=== PATIENT | female | born 1955 | race Two or more races ===

== ENCOUNTER → 2022-07-18 15:42 | Outpatient (REF) | payer OTHER, SELFPAY | LOC: HO.SL 15:42 | PROVIDERS: Visit Provider Psychiatry & Neurology Neurology | DX: G47.33 Obstructive sleep apnea (adult) (pediatric) (principal) | CPT/HCPCS: 95806; 95811 ==

== ENCOUNTER → 2022-09-12 09:59 | Outpatient (BNVA) | payer OTHER, SELFPAY | PROVIDERS: PCP Internal Medicine; Visit Provider Psychiatry & Neurology Neurology | DX: G47.33 Obstructive sleep apnea (adult) (pediatric) (principal); G47.52 REM sleep behavior disorder; G25.81 Restless legs syndrome; G20 Parkinson's disease ==

== ENCOUNTER → 2022-10-09 21:34 | Outpatient (REF) | payer OTHER, SELFPAY | LOC: HO.SL 21:34 | PROVIDERS: PCP Internal Medicine; Visit Provider Nurse Practitioner Family | DX: G47.33 Obstructive sleep apnea (adult) (pediatric) (principal) | CPT/HCPCS: 95811 ==

== ENCOUNTER → 2022-12-11 07:30 | Outpatient (BNVA) | payer OTHER, SELFPAY | PROVIDERS: PCP Internal Medicine; Visit Provider Psychiatry & Neurology Neurology | DX: G47.33 Obstructive sleep apnea (adult) (pediatric) (principal); G47.52 REM sleep behavior disorder; G25.81 Restless legs syndrome; G20 Parkinson's disease ==

== ENCOUNTER → 2023-02-18 09:20 | Outpatient (BNVA) | payer OTHER, SELFPAY | PROVIDERS: PCP Internal Medicine; Visit Provider Psychiatry & Neurology Neurology | DX: G47.33 Obstructive sleep apnea (adult) (pediatric) (principal); G47.52 REM sleep behavior disorder; G25.81 Restless legs syndrome; G20 Parkinson's disease ==

== ENCOUNTER 2023-05-27 07:35 | Outpatient (AMB) | payer MEDICARE, SELFPAY ==
--- NOTE | 2023-05-27 07:33 | MHC.OFFVIS ---
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 she is using her CPAP more consistently CPAP compliance- 80% Usage hrs 4hrs median pressure 11 AHI 3 she denies any abnormal REM behavior . she has gained weight since last Parkinsons is stable- tremors have mildly worsened, gait is worse.No falls. \No hallucinations she uses a stool softener . Mood is stable.Denies anxiety Her ankle is better ( left ankle surgery 2 yrs ago) she also has back pain. [facility] Medical History Leg cramps, sleep related Arthritis Hyperlipidemia Restless legs syndrome (RLS) Complex sleep apnea syndrome Surgical History History of ankle surgery Family History Father Lung cancer Emphysema of lung Mother Stroke Social History Household Members: Spouse and Children Alcohol intake: current Alcohol intake frequency: holidays/special occasions only Alcohol type: wine Patient Tobacco Use Status: Former Tobacco user Physical Exam Vital Signs: Last Vital Signs Pulse 85 05/27/23 07:37 BP 122/80 05/27/23 07:37 Pulse Ox 96 05/27/23 07:37 Oxygen Delivery Method Room Air 05/27/23 07:37 Const General: cooperative, comfortable and no acute distress Nutritional Appearance: obese Orientation/consciousness: patient oriented x3 Limitations: physical limitations HEENT Head: Yes normal to inspection Neuro Other: very mild decreased facial expression and blink Speech normal No rest tremors Mild postural tremors ivette Mild bradykinesia UE L>R Moderate bradykinesia L>R in LE Gait- mild slowing decreased arm swing left no cog wheel rigidity General: patient oriented x3 Assessment & Plan Assessment & Plan (1) Parkinson's disease: Code(s): G20 - Parkinson's disease (2) Obstructive sleep apnea: Comment: Severe degree of sleep apnea. The total AHI was 37/hr and oxygen meliza was 81 % Code(s): G47.33 - Obstructive sleep apnea (adult) (pediatric) (3) REM behavioral disorder: Code(s): G47.52 - REM sleep behavior disorder Plan Melatonin 3-5mg qhs pramipexole 1mg tid ( c/o excessive sleepiness) Continue CPAP 5-14 Will consider INSPIRE due to poor cpap tolerance Info on INSPIRE given Refer to PT for back pain Orders: Orders PT Evaluation and Treatment Today M54.50 - Low back pain, unspecified Coding Level of Care Code Est Pt Level 4 (87186) Diagnoses Parkinson's disease G20 Obstructive sleep apnea G47.33 REM behavioral disorder G47.52
[2023-05-27 07:37] VITALS: BP 122/80; PULSE 85; O2SAT 96
== END 2023-05-27 08:07 | disposition home or self-care (01) ==
PROVIDERS: PCP Internal Medicine; Visit Provider Psychiatry & Neurology Neurology
DX: G20 Parkinson's disease (principal); G47.33 Obstructive sleep apnea (adult) (pediatric); G47.52 REM sleep behavior disorder
CPT/HCPCS: 99214

== ENCOUNTER → 2023-05-27 07:35 | Outpatient (BNVA) | payer MEDICARE, SELFPAY | PROVIDERS: PCP Internal Medicine; Visit Provider Psychiatry & Neurology Neurology | DX: G20 Parkinson's disease (principal); G47.33 Obstructive sleep apnea (adult) (pediatric); G47.52 REM sleep behavior disorder | CPT/HCPCS: 99212 ==

== ENCOUNTER 2023-09-10 09:56 | Outpatient (AMB) | payer MEDICARE, SELFPAY ==
--- NOTE | 2023-09-10 10:02 | A.OFFVIS_ITS ---
Intake Vital Signs 09/10/23 10:03 Height 5 ft 4 in Weight 194 lb 4 oz BMI 33.3 BP 140/70 H Blood Pressure Location Lt brachial Position Sitting Pulse 85 Pulse Source Pulse Oximeter Pulse Oximetry (%) 95 Oxygen Delivery Method Room Air Intake Visit Reasons: f/u per MD for problems with CPAP-LVM Allergies No Known Allergies Allergy (Verified 09/10/23 10:06) HPI HPI Comments History of Present Illness Details 67 y/o female comes for follow up of Par kinsons disease, restless legs syndrome, MIRANDA on CPAP. Pt reports Parkinsons' symptoms are stable- tremors mild and no falls reported. She uses a stool softener . Mood is stable. Denies anxiety. Denies REM behavior. Restless legs manages well with pramipexole 1 mg TID. She had refittied mask and it feels a little better. However, she wakes up without CPAP sometimes. Also she had cold and sinus problem in July, could not use CPAP regularly. The CPAP compliance and therapy response (06/12/23-09/09/23) reviewed. She is on APAP [id number]. The usage days 43 % and the average usage hours 3 hrs 20 min. The max pressure was 13 and the AHI was 3/hr. [facility] Medical History (Updated 09/12/23 @ 15:58 by Jeimy Butler CNP) Leg cramps, sleep related Arthritis Hyperlipidemia Restless legs syndrome (RLS) Complex sleep apnea syndrome Surgical History History of ankle surgery Family History Father Lung cancer Emphysema of lung Mother Stroke Social History Household Members: Spouse and Children Alcohol intake: current Alcohol intake frequency: holidays/special occasions only Alcohol type: wine Patient Tobacco Use Status: Former Tobacco user Review of Systems Const All systems reviewed & are unremarkable except as noted in HPI and below Physical Exam Vital Signs: Last Vital Signs Pulse 85 09/10/23 10:03 BP 140/70 H 09/10/23 10:03 Pulse Ox 95 09/10/23 10:03 Oxygen Delivery Method Room Air 09/10/23 10:03 BMI result Body Mass Index 33.3 Const General: cooperative, comfortable and no acute distress Nutritional Appearance: obese Orientation/consciousness: patient oriented x3 Limitations: physical limitations HEENT Head: Yes normal to inspection Neuro Other: very mild decreased facial expression and blink Speech normal No rest tremors Mild postural tremors ivette Mild bradykinesia UE L>R Moderate bradykinesia L>R in LE Gait- mild slowing decreased arm swing left no cog wheel rigidity General: patient oriented x3 Assessment & Plan Assessment & Plan (1) Parkinson's disease: Code(s): G20 - Parkinson's disease (2) Obstructive sleep apnea: Comment: Severe degree of sleep apnea. The total AHI was 37/hr and oxygen meliza was 81 % Code(s): G47.33 - Obstructive sleep apnea (adult) (pediatric) (3) REM behavioral disorder: Code(s): G47.52 - REM sleep behavior disorder (4) Restless legs syndrome (RLS): Code(s): G25.81 - Restless legs syndrome Plan Melatonin 3-5mg qhs. pramipexole 1mg tid ( c/o excessive sleepiness). Continue CPAP 5-14 cmH2O. Will consider INSPIRE due to poor cpap tolerance. Pt is not interested in INSPIRE at this time. Coding Level of Care Code Est Pt Level 4 (88481) Diagnoses Parkinson's disease G20 Obstructive sleep apnea G47.33 REM behavioral disorder G47.52 Restless legs syndrome (RLS) G25.81
[2023-09-10 10:03] VITALS: BP 140/70; PULSE 85; O2SAT 95; BMI 33.3
== END 2023-09-10 10:27 | disposition home or self-care (01) ==
LOC: HO.HSMC 09:56
PROVIDERS: PCP Internal Medicine; Visit Provider Nurse Practitioner Family
DX: G20.B1 Parkinson's disease with dyskinesia, without mention of fluctuations (principal); G47.33 Obstructive sleep apnea (adult) (pediatric); G47.52 REM sleep behavior disorder; G25.81 Restless legs syndrome
CPT/HCPCS: 99214

== ENCOUNTER → 2023-09-10 09:56 | Outpatient (BNVA) | payer MEDICARE, SELFPAY | PROVIDERS: PCP Internal Medicine; Visit Provider Nurse Practitioner Family | DX: G20.A1 Parkinson's disease without dyskinesia, without mention of fluctuations (principal); G47.33 Obstructive sleep apnea (adult) (pediatric); G47.52 REM sleep behavior disorder; G25.81 Restless legs syndrome | CPT/HCPCS: 99212 ==

== ENCOUNTER → 2023-11-26 10:29 | Outpatient (BNVA) | payer MEDICARE, SELFPAY | PROVIDERS: PCP Internal Medicine; Visit Provider Psychiatry & Neurology Neurology | DX: G20.A1 Parkinson's disease without dyskinesia, without mention of fluctuations (principal); G47.33 Obstructive sleep apnea (adult) (pediatric); G47.52 REM sleep behavior disorder; G25.81 Restless legs syndrome | CPT/HCPCS: 99212 ==

== ENCOUNTER 2023-11-26 10:39 | Outpatient (AMB) | payer MEDICARE, SELFPAY ==
--- NOTE | 2023-11-26 10:31 | A.OFFVIS_ITS ---
Intake Vital Signs 11/26/23 10:32 Height 5 ft 4 in Weight 194 lb BMI 33.3 BP 120/76 Blood Pressure Location Rt brachial Position Sitting Respiration 16 Pulse 91 Pulse Source Pulse Oximeter Pulse Oximetry (%) 96 Oxygen Delivery Method Room Air Intake Visit Reasons: 6m f/u-Unable to lvm Intake Note: Pt presents for 2 month follow up for Parkinson's and RLS. 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 Pt reports Parkinsons' symptoms are stable- tremors mild and no falls reported. She uses a stool softener . Mood is stable. Denies anxiety. Denies REM behavior. she had a mask fitting session and has been doing well since then. The CPAP compliance and therapy response (06/12/23-09/09/23) reviewed. She is on APAP [id number]. The usage days 43 % and the average usage hours 3 hrs 20 min. The max pressure was 13 and the AHI was 3/hr. [facility] Medical History (Updated 11/26/23 @ 10:52 by Criselda Foy MD) Parkinson's disease without dyskinesia, without mention of fluctuations Leg cramps, sleep related Arthritis Hyperlipidemia Restless legs syndrome (RLS) Complex sleep apnea syndrome Surgical History History of ankle surgery Family History Father Lung cancer Emphysema of lung Mother Stroke Social History Household Members: Spouse and Children Alcohol intake: current Alcohol intake frequency: holidays/special occasions only Alcohol type: wine Patient Tobacco Use Status: Former Tobacco user Physical Exam Vital Signs: Last Vital Signs Pulse 91 11/26/23 10:32 Resp 16 11/26/23 10:32 BP 120/76 11/26/23 10:32 Pulse Ox 96 11/26/23 10:32 Oxygen Delivery Method Room Air 11/26/23 10:32 BMI result Body Mass Index 33.3 Const General: cooperative, comfortable and no acute distress Nutritional Appearance: obese Orientation/consciousness: patient oriented x3 Limitations: physical limitations HEENT Head: Yes normal to inspection Neuro Other: very mild decreased facial expression and blink Speech normal No rest tremors Mild postural tremors ivette Mild bradykinesia UE L>R Moderate bradykinesia L>R in LE Gait- mild slowing decreased arm swing left >r no cog wheel rigidity General: patient oriented x3 Assessment & Plan Assessment & Plan (1) Parkinson's disease without dyskinesia, without mention of fluctuations: Code(s): G20.A1 - Parkinson's disease without dyskinesia, without mention of fluctuations (2) Obstructive sleep apnea: Comment: Severe degree of sleep apnea. The total AHI was 37/hr and oxygen meliza was 81 % Code(s): G47.33 - Obstructive sleep apnea (adult) (pediatric) (3) REM behavioral disorder: Code(s): G47.52 - REM sleep behavior disorder (4) Restless legs syndrome (RLS): Code(s): G25.81 - Restless legs syndrome Plan Melatonin 3-5mg qhs. pramipexole 1mg tid ( c/o excessive sleepiness)discussed side effects- denies any hypersomnia or OCD like symptoms. Continue CPAP 5-14 cmH2O. will refer to PT for gait training Orders: Orders PT Evaluation and Treatment Today G20.A1 - Parkinson's disease without dyskinesia, without mention of fluctuations Coding Level of Care Code Est Pt Level 4 (08001) Diagnoses Parkinson's disease without dyskinesia, without mention of fluctuations G20.A1 Obstructive sleep apnea G47.33 REM behavioral disorder G47.52 Restless legs syndrome (RLS) G25.81
[2023-11-26 10:32] VITALS: BP 120/76; PULSE 91; RESP 16; O2SAT 96; BMI 33.3
== END 2023-11-26 11:01 | disposition home or self-care (01) ==
PROVIDERS: PCP Internal Medicine; Visit Provider Psychiatry & Neurology Neurology
DX: G20.A1 Parkinson's disease without dyskinesia, without mention of fluctuations (principal); G47.33 Obstructive sleep apnea (adult) (pediatric); G47.52 REM sleep behavior disorder; G25.81 Restless legs syndrome
CPT/HCPCS: 99214

== ENCOUNTER 2024-05-28 09:58 | Outpatient (AMB) | payer OTHER, SELFPAY ==
[2024-05-28 10:01] VITALS: BP 130/76; PULSE 93; O2SAT 98; BMI 32.2
--- NOTE | 2024-05-28 10:01 | A.OFFVIS_ITS ---
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 SHe feels her gait has worsened - balance is poor . she started with Yazmin Chi .No falls Tremors are stable . Mild memory issues. Sleep is good.No vivid dreams or nightmares. She is independent in all ADLS. she denies any speech or swallowing issues No hallucinations No dizziness. She uses a stool softener . Mood is stable. Denies anxiety Denies REM behavior. she had a mask fitting session and has been doing well since then. She is on APAP [id number].she has a cold and hu strouble using it. she is using it very regularly on other days . she is less tired and more alert during the day. [facility] Medical History Parkinson's disease without dyskinesia, without mention of fluctuations Leg cramps, sleep related Arthritis Hyperlipidemia Restless legs syndrome (RLS) Complex sleep apnea syndrome Surgical History History of ankle surgery Family History Father Lung cancer Emphysema of lung Mother Stroke Social History Household Members: Spouse and Children Alcohol intake: current Alcohol intake frequency: holidays/special occasions only Alcohol type: wine Patient Tobacco Use Status: Former Tobacco user Physical Exam Vital Signs: Last Vital Signs Pulse 93 05/28/24 10:01 BP 130/76 05/28/24 10:01 Pulse Ox 98 05/28/24 10:01 Oxygen Delivery Method Room Air 05/28/24 10:01 BMI result Body Mass Index 32.2 Const General: cooperative, comfortable and no acute distress Nutritional Appearance: obese Orientation/consciousness: patient oriented x3 Limitations: physical limitations HEENT Head: Yes normal to inspection Neuro Other: very mild decreased facial expression and blink Speech normal rest tremors in ivette LE Mild postural tremors ivette Mild bradykinesia UE L>R Moderate bradykinesia L>R in LE Gait- mild slowing decreased arm swing left >r no cog wheel rigidity General: patient oriented x3 Assessment & Plan Assessment & Plan (1) Parkinson's disease without dyskinesia, without mention of fluctuations: Code(s): G20.A1 - Parkinson's disease without dyskinesia, without mention of fluctuations Category: Medical (2) Obstructive sleep apnea: Comment: Severe degree of sleep apnea. The total AHI was 37/hr and oxygen meliza was 81 % Code(s): G47.33 - Obstructive sleep apnea (adult) (pediatric) Category: Medical (3) REM behavioral disorder: Code(s): G47.52 - REM sleep behavior disorder Category: Medical (4) Restless legs syndrome (RLS): Code(s): G25.81 - Restless legs syndrome Category: Medical Plan Pramipexole 1mg tid ( c/o excessive sleepiness)discussed side effects- denies any hypersomnia or OCD like symptoms. Continue CPAP 5-14 cmH2O. Continue exercise Medications: Refilled pramipexole 1 mg PO TID 90 tabs 6RF Coding Level of Care Code Est Pt Level 4 (23652) Complex EM visit Add On G2211 Diagnoses Parkinson's disease without dyskinesia, without mention of fluctuations G20.A1 Obstructive sleep apnea G47.33 REM behavioral disorder G47.52 Restless legs syndrome (RLS) G25.81
== END 2024-05-28 10:30 | disposition home or self-care (01) ==
PROVIDERS: PCP Internal Medicine; Visit Provider Psychiatry & Neurology Neurology
DX: G20.A1 Parkinson's disease without dyskinesia, without mention of fluctuations (principal); G47.33 Obstructive sleep apnea (adult) (pediatric); G47.52 REM sleep behavior disorder; G25.81 Restless legs syndrome
CPT/HCPCS: 99214; G2211

== ENCOUNTER → 2024-05-28 09:58 | Outpatient (BNVA) | payer OTHER, SELFPAY | PROVIDERS: PCP Internal Medicine; Visit Provider Psychiatry & Neurology Neurology | DX: G20.A1 Parkinson's disease without dyskinesia, without mention of fluctuations (principal); G47.33 Obstructive sleep apnea (adult) (pediatric); G47.52 REM sleep behavior disorder; G25.81 Restless legs syndrome | CPT/HCPCS: 99212 ==

== ENCOUNTER → 2024-10-08 09:50 | Outpatient (BNVA) | payer OTHER, SELFPAY | PROVIDERS: PCP Internal Medicine; Visit Provider Psychiatry & Neurology Neurology | DX: G20.A1 Parkinson's disease without dyskinesia, without mention of fluctuations (principal); G47.33 Obstructive sleep apnea (adult) (pediatric); G47.52 REM sleep behavior disorder; G25.81 Restless legs syndrome ==

== ENCOUNTER 2024-11-03 15:23 | Outpatient (AMB) | payer OTHER, SELFPAY ==
--- NOTE | 2024-11-03 15:34 | MHC.OFFVIS ---
Vital Signs 11/03/24 15:35 Height 5 ft 4 in Weight 188 lb 7.924 oz BMI 32.4 BP 120/70 Blood Pressure Location Lt brachial Position Sitting Pulse 92 Pulse Source Pulse Oximeter Pulse Oximetry (%) 96 Oxygen Delivery Method Room Air Intake Visit Reasons: Obstructive sleep apnea Intake Note: pt is here as a new patient for a cough that was like a dog in her chest, this prohibited her from using her cpap for a month, some wheezing, some good days some bad days. 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 SHE HAS BEEN USING CPAP REGULARLY, ABOUT 2 MONTHS AGO SHE HAD SYMPTOMS OF NASAL CONGESTION MILD SORE THROAT TO START WITH AND COUGH. SHE WAS TREATED JUST SYMPTOM MEDICALLY, HER ACUTE SYMPTOMS SUBSIDED BUT SHE CONTINUE TO HAVE VERY FREQUENT COUGH ESPECIALLY AT NIGHT AND WAS NOT ABLE TO PUT ON THE CPAP MASK. NOW SINCE ABOUT 1 WEEK AGO THE COUGH HAS SUBSIDED AND SHE IS TRYING TO PUT ON THE CPAP MASK FOR SHORT INTERVALS. SHE HAS BEEN NONSMOKER. SHE DOES NOT HAVE HISTORY OF ANY CHRONIC LUNG DISEASE SUCH BRONCHIAL ASTHMA OR COPD. SHE DOES HAVE MILD ALLERGIC RHINITIS AND USES ANTIHISTAMINICS ONLY ONCE IN A WHILE FORMERLY [facility], [facility] Medical History (Updated 11/03/24 @ 16:22 by Maya Live MD) Cough Parkinson's disease without dyskinesia, without mention of fluctuations Leg cramps, sleep related Arthritis Hyperlipidemia Restless legs syndrome (RLS) Complex sleep apnea syndrome Surgical History History of ankle surgery Family History Father Lung cancer Emphysema of lung Mother Stroke Social History (Reviewed 11/03/24 @ 15:41 by Mari Arevalo [facility], [facility]) Household Members: Spouse and Children Alcohol intake: current Alcohol intake frequency: holidays/special occasions only Alcohol type: wine Patient Tobacco Use Status: Former Tobacco user Review of Systems Const All systems reviewed & are unremarkable except as noted in HPI and below Eyes Reports no additional complaints ENT Reports nasal congestion, Reports nasal obstruction (MILD INTERMITTENT) and Reports post nasal drip Card Denies irregular heart rhythm and Denies leg edema Resp Reports as per HPI GI Reports no additional complaints Reports no additional complaints Musc Reports no additional complaints Skin/Breast Reports system reviewed and no additional complaints, except as documented Neuro Reports restless legs and Reports other (MILD PARKINSONISM) Psych Reports no additional complaints Endo Reports no additional complaints Marv/Lymph Reports no additional complaints Physical Exam Vital Signs: Last Vital Signs Pulse 92 11/03/24 15:35 BP 120/70 11/03/24 15:35 Pulse Ox 96 11/03/24 15:35 Oxygen Delivery Method Room Air 11/03/24 15:35 BMI result Body Mass Index 32.4 Const General: healthy appearing, comfortable, no acute distress, alert and awake Orientation/consciousness: patient oriented x3 HEENT Head: Yes normal to inspection General nose exam: No nasal polyps present, mucous membranes and turbinates abnormal (MODERATE DEGREE OF HYPERTROPHY OF THE NASAL TURBINATES) and No nasal discharge present Face and sinus: Yes sinuses nontender Mouth: oropharynx normal Throat: Yes posterior oropharynx normal Eyes General: appearance normal, both eyes and all related structures Neck Neck: Yes normal visual inspection, Yes no lymphadenopathy, Yes trachea midline and Yes no JVD Thyroid: Thyroid normal Chest Chest palpation & inspection: normal inspection of the chest and normal palpation of entire chest wall Resp Effort & Inspection: normal respiratory effort Auscultation: clear to auscultation bilaterally, no crackles, no rhonchi and no wheezes Cardio Palpation: normal PMI Rate: regular rate Rhythm: regular rhythm Heart sounds: no gallops and no murmurs Peripheral pulses: Peripheral pulses 2+ throughout GI Palpation (GI): Soft to palpation, nontender, No hepatosplenomegaly present and no masses Auscultation: normal bowel sounds Back/Spine/Pelvis Thoracic/Lumbar Spine: thoracic and lumbar spine normal to inspection Skin General skin exam: no rashes or lesions noted Neuro General: patient oriented x3 and no focal motor deficits Cranial nerves: Yes CN's II-XII intact bilaterally Extrem General: Yes normal to inspection, Yes no clubbing, cyanosis or edema and Yes no calf tenderness Psych Appearance: grossly normal and well kempt Speech and movement: Normal speech and movement present Results Reviewed Results Reviewed: SPIROMETRY NORMAL EXCEPT FOR MILD RESTRICTIVE PATTERN (FVC= 76 % ) DUE TO OBESITY Assessment & Plan Assessment & Plan (1) Cough: Comment: PATIENT HAS HISTORY CONSISTENT WITH POST INFECTIOUS COUGH/ REACTIVE AIRWAYS, WHICH STARTED AFTER MOST LIKELY AN ACUTE VIRAL INFECTION. IT USUALLY RESOLVES IN 8-12 WEEKS , BY ITSELF . AT PRESENT SHE HAS COMPLETED HER EXPECTED COURSE , AND COUGH IS ALMOST RESOLVED Code(s): R05.9 - Cough, unspecified Category: Medical Plan: EXPLAINED TO THE PATIENT AND REASSURED HER THAT THERE IS NO INTRINSIC LUNG. DISEASE AT THIS TIME SHE WAS EDUCATED ABOUT RESTRICTIVE PATTERN AND ADVISED TO LOSE ABOUT 5-10 LB OF WEIGHT AND ALSO TRY TO DO DEEP BREATHING EXERCISES (2) Obstructive sleep apnea: Comment: Severe degree of sleep apnea. The total AHI was 37/hr and oxygen meliza was 81 % Code(s): G47.33 - Obstructive sleep apnea (adult) (pediatric) Category: Medical Plan: PATIENT IS A KNOWN CASE OF OBSTRUCTIVE SLEEP APNEA, HAS BEEN USING CPAP REGULARLY. AND COULD NOT USE THE CPAP DUE TO COUGH FOR THE LAST 2 MONTHS DESCRIBED ABOVE. NOW THAT THE COUGH HAS RESOLVED SHE WILL START USING THE CPAP AGAIN. Coding Level of Care Code New Pt Level 3 (29906) Diagnoses Cough R05.9 Obstructive sleep apnea G47.33
[2024-11-03 15:35] VITALS: BP 120/70; PULSE 92; O2SAT 96; BMI 32.4
--- OUTSIDE RECORDS SUMMARY | 2024-11-03 19:28 | XMS_ITS | Clinical Summary ---
Author Organization [address] Address [address] [place] [phone] Phone Care Team Providers Care Quarry Supervisor Dimension Stone Name Role Phone AgnesJoaquín luna Primary Care Provider [phone] Encounters Date Type Department Care Team Description 10/19/2024 Telephone Gastroenterology - [address] [phone] Ruthy Dia MD 09/18/2024 1:00 PM EST - 09/18/2024 11:59 PM EST Hospital Encounter [facility] Bone Density [address] [place] [phone] Post-menopausal Discharge Disposition: Home or Self Care from Last 3 Months Social History Tobacco Use Types Packs/Day Years Used Date Smoking Tobacco: Never Assessed Comments Unknown Sex and Gender Information Value Date Recorded Sex Assigned at Not on file Legal Sex Female 4:23 AM EST Gender Identity Not on file Sexual Orientation Not on file Last Filed Vital Signs Vital Sign Reading Time Taken Comments Blood Pressure 124/70 09/30/2023 9:11 AM EST Sit ting L Arm Pulse - - Temperature - - Respiratory Rate - - Oxygen Saturation - - Inhaled Oxygen Concentration - - Weight 88 kg (194 lb) 09/30/2023 9:11 AM EST Height - - Body Mass Index - - Plan of Treatment Upcoming Encounters Date Type Department Care Team (Late st Contact Info) Description 11/25/2024 10:00 AM EDT Office Visit Gastroenterology - [address] [facility] [address] [place] [phone] Inna King, NERI [address] [phone] Health Maintenance Due Date Last Done Comments Breast Cancer Screening 1955 DTaP,Tdap,and Td Vaccines (1 - Tdap) 1973 Pneumococcal Vaccine: 50+ Years (1 of 1 - PCV) 2004 Zoster Vaccines (1 of 2) 2004 Colorectal Cancer Screening: Colonoscopy 08/05/2022 Depression Screening 08/05/2022 Falls Risk Assessment 08/05/2022 Hepatitis C Screening 08/05/2022 Medicare Annual Wellness Visit 08/05/2022 Social Influencers of Health Screening 08/05/2022 COVID-19 Vaccine (4 - 2023-2 5 season) 2024 06/26/2021, 12/20/2020, 11/27/2020 Cholesterol Screening (Lipid Panel) 07/23/2029 07/23/2024 RSV Immunization Patients 60 + Years Old (1 - 1-dose 75+ series) 2029 Osteoporosis Screening (Bone Density Screening) 09/18/2034 09/18/2024 Influenza Vaccine Completed 07/23/2024, 07/10/2023, 07/04/2022 HIB Vaccines Aged Out No longer eligi ble based on patient's age to complete this topic HPV Vaccines Aged Out No longer eligi ble based on patient's age to complete this topic Hepatitis A Vaccines Aged Out No long er eligible based on patient's age to complete this topic Hepatitis B Vaccines Aged Out No long er eligible based on patient's age to complete this topic IPV Vaccines Aged Out No longer eligi ble based on patient's age to complete this topic MMR Vaccines Aged Out No longer eligi ble based on patient's age to complete this topic Meningococcal ACWY Vaccine Aged Out N o longer eligible based on patient's age to complete this topic Meningococcal B Vacine Aged Out No lo nger eligible based on patient's age to complete this topic RSV Immunization Patients Under 20 months Aged Out No longer eligible b ased on patient's age to complete this topic Varicella Vaccines Aged Out No longer eligible based on patient's age to complete this topic Procedures Procedure Name Priority Date/Time Associated Diagnosis Comments BD BONE DENSITY DXA AXIAL SKELETON Routine 09/18/2024 1:25 PM EST Post-menopausal LIPID PANEL WITH REFLEX TO DIRECT LDL Routine 07/23/2024 11:12 AM EST Hyperlipemia Routine general medical examination at a health care facility from Last 3 Months or Most Recently Relevant to Health Maintenance Results * BD Bone Density DXA Axial Skeleton (09/18/2024 1:25 PM EST) Anatomical Region Laterality Modality Wrist, Hip, L-spine Bone Densito metry 09/21/2024 8:36 AM EST Impressions 09/21/2024 8:37 AM EST 1. There is no evidence of osteoporosis or osteopenia. 2. FRAX analysis yields a 10-year probability of major osteoporotic fracture of 3.6% and a 10-year probability of hip fracture of 0.2%. Code 06613 -------- FINAL REPORT -------- Dictated By: Aneudy Perez Dictated Date: 09/21/2024 08:36 ET Assigned Physician: Aneudy Perez Reviewed and Electronically Signed By: Aneudy Perez Signed Date: 09/21/2024 08:37 ET Workstation ID: [id number] Transcribed By: Self Edit Transcribed Date: 09/21/2024 08:36 ET Narrative 09/21/2024 8:37 AM EST HISTORY: ??The patient is a 68-year-old postmenopausal female with clinical concern for metabolic bone disease. FINDINGS: ??Dual energy x-ray absorptiometry of the lumbar spine and femurs is performed. The mean bone mineral density at L1-L4 is 1.205 gm/cm2 which is 102% of that of young normals and 114% of that of age matched controls. This yields a T- score of 0.2 and a Z-score of 1.3 and there is therefore no evidence of osteoporosis or osteopenia here. The mean bone mineral density of the femurs bilaterally is 1.067 gm/cm2 which is 106% of that of young normals and 121% of that of age matched controls. ??This yields a T-score of 0.5 and a Z-score of 1.5 and there is therefore no evidence of osteoporosis or osteopenia here. Procedure Note Aenudy Perez MD - 09/21/2024 HISTORY: The patient is a 68-year-old postmenopausal female with clinicalconcern for metabolic bone disease. FINDINGS: Dual energy x-ray absorptiometry of the lumbar spine and femursis performed. The mean bone mineral density at L1-L4 is 1.205 gm/cm2 whichis 102% of that of young normals and 114% of that of age matched controls.This yields a T- score of 0.2 and a Z-score of 1.3 and there is thereforeno evidence of osteoporosis or osteopenia here. The mean bone mineral density of the femurs bilaterally is 1.067 gm/uq3qeydj is 106% of that of young normals and 121% of that of age matchedcontrols. This yields a T-score of 0.5 and a Z-score of 1.5 and there istherefore no evidence of osteoporosis or osteopenia here. IMPRESSION: 1. There is no evidence of osteoporosis or osteopenia. 2. FRAX analysis yields a 10-year probability of major osteoporoticfracture of 3.6% and a 10-year probability of hip fracture of 0.2%. Code 79544 -------- FINAL REPORT -------- Dictated By: Aneudy Perez Dictated Date: 09/21/2024 08:36 ET Assigned Physician: Aneudy Perez Reviewed and Electronically Signed By: Aneudy Perez Signed Date: 09/21/2024 08:37 ET Workstation ID: [id number] Transcribed By: Self Edit Transcribed Date: 09/21/2024 08:36 ET Joaquín Warner DO [facility] [place] DXA PROCEDURES Final Resu lt * Lipid panel with reflex to direct LDL (07/23/2024 11:12 AM EST) Cholesterol 163 0 - 200 mg/dL LAB CHEMISTRY METHOD 07/23/2024 3:[address] [facility] Triglycerides 127 0 - 150 mg/dL LAB CHEMISTRY METHOD 07/23/2024 3:[address] [facility] HDL 46 >=40 mg/dL LAB CHEMISTRY METHOD 07/23/2024 3:[address] [facility] LDL Calculated 92 0 - 100 mg/dL LAB CHEMISTRY METHOD 07/23/2024 3:[address] [facility] VLDL Cholesterol Bill 25.4 mg/dL LAB CHEMISTRY METHOD 07/23/2024 3:[address] [facility] Non HDL Chol. (LDL+VLDL) 117 <145 mg/dL LAB CHEMISTRY METHOD 07/23/2024 3:[address] [facility] Chol/HDL Ratio 3.5 0.0 - 4.4 LAB CHEMISTRY METHOD 07/23/2024 3:[address] [facility] Blood Venous blood specimen / Unknown Venipuncture / Unknown 07/23/2024 11:12 AM EST 07/23/2024 11:13 AM EST us Mihaela Rodriguez SYSTEMS INTEGRATION ADVISOR LAB BLOOD ORDERABLES Fi nal Result [facility] [address] [place] [address], [place] [phone] from Last 3 Months or Most Recently Relevant to Health Maintenance Insurance [employer] on file [employer] MED[employer]ARE Care Teams Quarry Supervisor Dimension Stone Relationship Specialty Start Date End Date Joaquín Warner DO [address] [place] [phone] PCP - General 08/05/23
--- OUTSIDE RECORDS SUMMARY | 2024-11-03 19:28 | XMS_ITS | Continuity of Care Document ---
Author Organization [facility] Address [address] [place] [phone] Care Team Providers Care Media Sales Representative Name Role Phone Joaquín Warner DO Primary Care Physician [id number] Date(s): 08/17/24 - 10/25/24 [facility] [address] [place] [phone] Attending Physician: Joaquín Warner DO Admitting Physician: Joaquín Warner DO Referring Physician: Joaquín Warner DO Encounter Type: Pre-Outpt Allergies, Adverse Reactions, Alerts No Known Allergies Medications Ecotrin 325 mg oral delayed release tablet 1 tablet = 325 mg, By Mouth, Daily, 0 Refills, Maintenance, 02/24/21 10:24:00 AM EDT, Partial fill upon patient request if the prescription is for a schedule II opioid drug. Start Date: 02/24/21 Status: Ordered Repeat number: 1 magnesium magnesium, Refills 0, Maintenance, 03/20/19 9:48:56 AM EDT, Compound Start Date: 03/20/19 Status: Ordered Repeat number: 1 oxyCODONE 5 mg oral tablet See Instructions, PRN, 1 tablet By Mouth Every 4-6 hours as needed for pain DO NOT drive while taking this medication, Refills 0, Tot. Refills 0, Maintenance, Pain , Moderate, 02/24/21 10:23:00 AM EDT, Instructions Replace Required Details, Partial fill upon patient request if the prescription is for a schedule II opioid drug. Start Date: 02/24/21 Status: Ordered Repeat number: 1 pramipexole 1 mg oral tablet 1 tablet, By Mouth, 3 times a day, # 270 tablet, 1 Refills, [id number], 161, cm, 08/14/20 21:58:00 EST, Height, 87, kg, 02/24/21 10:33:00 EDT, Dry Weight Start Date: 05/18/21 Status: Ordered Quantity: 270.0 Unit: tablet Repeat number: 1 Prilosec 20 mg oral enteric coated capsule 1 capsule = 20 mg, By Mouth, Daily, # 30 capsule, 0 Refills, Maintenance, 09/21/11 1:13:07 PM EST, EC Capsule Start Date: 09/21/11 Status: Ordered Quantity: 30.0 Unit: capsule Repeat number: 1 simvastatin 20 mg oral tablet 20 mg, 1, tablet, By Mouth, Daily at bedtime, # 30 tablet, Refills 0, Maintenance, 12/09/17 3:52:41 PM EDT Start Date: 12/09/17 Status: Ordered Quantity: 30.0 Unit: tablet Repeat number: 1 Tylenol Extra Strength 500 mg oral tablet 2 tablet = 1,000 mg, By Mouth, Every 8 hours, PRN Pain , Moderate, 0 Refills, Maintenance, 02/24/21 10:23:00 AM EDT, Partial fill upon patient request if the prescription is for a schedule II opioid drug. Start Date: 02/24/21 Status: Ordered Repeat number: 1 Vitamin D3 2000 intl units oral capsule 1 capsule = 2,000 International_Units, By Mouth, Daily, 0 Refills, Maintenance, 12/09/17 3:53:36 PM EDT Start Date: 12/09/17 Status: Ordered Repeat number: 1 Vitamin D3 5000 intl units oral capsule = 125 mcg, By Mouth, Daily, 0 Refills, Maintenance, 02/24/21 10:51:00 AM EDT, Partial fill upon patient request if the prescription is for a schedule II opioid drug. Start Date: 02/24/21 Status: Ordered Repeat number: 1 Wellbutrin XL 150 mg/24 hours oral tablet, extended release 1 tablet = 150 mg, By Mouth, Every 24 hours, 0 Refills, Maintenance, 03/14/18 3:12:23 PM EDT Start Date: 03/14/18 Status: Ordered Repeat number: 1 Problem List Condition Confirmation Course Effective Dates Status Health St atus Informant Parkinson disease Confirmed Active Social History Social History Type Response Smoking Status Former smoker entered on: 03/13/16 Sex Sex Representation Female (finding) Patient Care team information Care Team Personnel Name: Joaquín Warner DO Position: [facility] Outreach Member Role: PCP Address: [address] [place], [place] [id number] [place], [place] [address] Telecom: Care Team Related Persons Name: STEPHANY MURCIA Insurance Providers Guarantor name: GAETANO MURCIA Health Plan Information #: [address] [facility] Member Number: [id number] Policy Number: NA Group Number: NA Health Plan Information #: 2 [facility] Terri Moore Member Number: NA Policy Number: NA Group Number: NA
--- OUTSIDE RECORDS SUMMARY | 2024-11-03 19:28 | XMS_ITS | Encounter Summary ---
Author Organization [facility] Address [address] [place] [address] Care Team Providers Care Livestock Judging Coach Name Role Phone Joaquín Warner DO Primary Care Provider [phone] Encounter Details Date Type Department Care Team (Late st Contact Info) Description 10/19/2024 Telephone Gastroenterology - [address] [place] [address] [phone] Ruthy Dia MD [address] [address] Social History Tobacco Use Types Packs/Day Years Used Date Smoking Tobacco: Never Assessed Comments Unknown Sex and Gender Information Value Date Recorded Sex Assigned at Not on file Legal Sex Female 4:23 AM EST Gender Identity Not on file Sexual Orientation Not on file documented as of this encounter Progress Notes * Kristin Hameed [place] - 10/19/2024 9:24 AM EST Pt needs an appt for refills. Last seen 07/2023. Please send msg back when pt schedules ov. * Randee Fan - 10/19/2024 9:21 AM EST PT CALLED REQ MED REFILL FOR PANTOPRAZOLE 40MG BID. documented in this encounter Plan of Treatment Upcoming Encounters Date Type Department Care Team (Late st Contact Info) Description 11/25/2024 10:00 AM EDT Office Visit Gastroenterology - [address] [place] [phone] Inna King, REAL ESTATE OFFICER 299 [facility] [address] [place] [address] documented as of this encounter Visit Diagnoses Not on filedocumented in this encounter Care Teams Livestock Judging Coach Relationship Specialty Start Date End Date Joaquín Warner DO [address] [place] [phone] PCP - General 08/05/23 documented as of this encounter
== END 2024-11-03 16:20 | disposition home or self-care (01) ==
PROVIDERS: PCP Internal Medicine; Visit Provider Internal Medicine
DX: R05.9 Cough, unspecified (principal); G47.33 Obstructive sleep apnea (adult) (pediatric)
CPT/HCPCS: 99203

== ENCOUNTER → 2024-11-03 15:23 | Outpatient (BNVA) | payer OTHER, SELFPAY | PROVIDERS: PCP Internal Medicine; Visit Provider Internal Medicine | DX: R05.9 Cough, unspecified (principal); G47.33 Obstructive sleep apnea (adult) (pediatric) | CPT/HCPCS: 94010 ==

== ENCOUNTER 2025-02-08 14:44 | Outpatient (AMB) | payer OTHER, SELFPAY ==
--- NOTE | 2025-02-08 15:04 | MHC.OFFVIS ---
Vital Signs 02/08/25 15:05 Height 5 ft 4 in Weight 187 lb BMI 32.1 Intake Visit Reasons: 3mon follow-up Intake Note: patient following up referred to pulmonology saw Maria T 11/03/24. compliance report scanned 01/14/25 Allergies No Known Allergies Allergy (Verified 02/08/25 15:05) Medication List - Last Reconciled 02/08/25 by Criselda Foy MD atorvastatin 10 mg PO DAILY bupropion HCl XL 150 mg PO QAM cholecalciferol (vitamin D3) 125 mcg PO DAILY pantoprazole 40 mg PO BID pramipexole 1 mg PO TID HPI Comments Details: 69 y/o female comes for follow up of Parkinsons disease, restless legs syndrome, MIRANDA on CPAP. she is doing good.No major change since last visit SHe denies any worsening of her gait. Her balance is not good.No falls Tremors are stable . Mild memory issues. Sleep is good.No vivid dreams or nightmares. She is independent in all ADLS. she denies any speech or swallowing issues No hallucinations No dizziness. She uses a stool softener . Mood is stable. Denies anxiety Denies REM behavior. She is on APAP 5-11jzH6V. compliance 41 % 3hrs usage PFSH Medical History Cough Parkinson's disease without dyskinesia, without mention of fluctuations Leg cramps, sleep related Arthritis Hyperlipidemia Restless legs syndrome (RLS) Complex sleep apnea syndrome Surgical History History of ankle surgery Family History Father Lung cancer Emphysema of lung Mother Stroke Social History Household Members: Spouse and Children Alcohol intake: current Alcohol intake frequency: holidays/special occasions only Alcohol type: wine Patient Tobacco Use Status: Former Tobacco user Physical Exam Vital Signs: BMI result Body Mass Index 32.1 Const General: cooperative, comfortable and no acute distress Nutritional Appearance: obese Orientation/consciousness: patient oriented x3 Limitations: physical limitations HEENT Head: Yes normal to inspection Neuro Other: very mild decreased facial expression and blink Speech normal rest tremors in ivette LE Mild postural tremors ivette Mild bradykinesia UE L>R Moderate bradykinesia L>R in LE Gait- mild slowing decreased arm swing left >r no cog wheel rigidity General: patient oriented x3 Assessment & Plan Assessment & Plan (1) Parkinson's disease without dyskinesia, without mention of fluctuations: Code(s): G20.A1 - Parkinson's disease without dyskinesia, without mention of fluctuations Category: Medical Qualifiers: Fluctuating manifestations: without fluctuating manifestations Qualified Code(s): G20.A1 - Parkinson's disease without dyskinesia, without mention of fluctuations (2) Obstructive sleep apnea: Comment: Severe degree of sleep apnea. The total AHI was 37/hr and oxygen meliza was 81 % Code(s): G47.33 - Obstructive sleep apnea (adult) (pediatric) Category: Medical (3) REM behavioral disorder: Code(s): G47.52 - REM sleep behavior disorder Category: Medical (4) Restless legs syndrome (RLS): Code(s): G25.81 - Restless legs syndrome Category: Medical Plan Pramipexole 1mg tid ( c/o excessive sleepiness)discussed side effects- denies any hypersomnia or OCD like symptoms. Continue CPAP 5-14 cmH2O.compliance stressed. I will refer - for INSPIRE evaluation . Patient is having difficulty using CPAP. Continue exercise Orders: Referrals Ear/Nose/Throat Referral G47.33 - Obstructive sleep apnea (adult) (pediatric) Coding Level of Care Code Est Pt Level 4 (40123) Complex EM visit Add On G2211 Diagnoses Parkinson's disease without dyskinesia or fluctuating manifestations G20.A1 Fluctuating manifestations: without fluctuating manifestations Obstructive sleep apnea G47.33 REM behavioral disorder G47.52 Restless legs syndrome (RLS) G25.81
[2025-02-08 15:05] VITALS: BMI 32.1
--- OUTSIDE RECORDS SUMMARY | 2025-02-08 16:31 | XMS_ITS | Patient Health Record ---
Author Organization [facility] Address [address] [place] [address] Care Team Providers Care Pull Worker Name Role Phone Timmy MUNGUIA, Joaquín Primary Care Provider Luiz Stone Unavailable [phone] Reason For Referral No Information Medications Medication SIG (Take, Route, Frequency, Duration) Notes Start Date End Date Status Azithromycin Not-Guerrero ing Topiramate Not-Takin g PriLOSEC 10 MG 2 capsules Orally On ce a day Active aspirin Active buPROPion HCl ER (XL) 150 MG Orally Active Simvastatin 10 MG Orally Ac tive vitamin D Active Magnesium Active Social History Tobacco use other than smoking: Question Answer Notes Are you an other tobacco user? No Problems Problem Type SNOMED Code ICD Code Onset Dates Problem Status W/U Status Risk Notes Problem Bunion, left foot (M21.612) Active confirmed Plan Of Treatment No Information Insurance Providers Payer Name Payer Address Payer Phone Subscriber Number Group Number Insured Name Patient Relationship to Insured Coverage Start Date Coverage End Date [employer] ([employer]) [address] [facility] [place] [address] [phone] [id number] Spouse - patient is the spouse of the insured Medical (General) History Medical History History ICD Code Back,Hip,and Knee pain Chicken pox Cholesterol Depression Mumps Parkinsons disease Surgical History Surgery Date(Month/Year) section 1980, 1983 tubal ligation 1989
== END 2025-02-08 15:24 | disposition home or self-care (01) ==
LOC: HO.HSMS 14:45
PROVIDERS: PCP Internal Medicine; Visit Provider Psychiatry & Neurology Neurology
DX: G20.A1 Parkinson's disease without dyskinesia, without mention of fluctuations (principal); G47.33 Obstructive sleep apnea (adult) (pediatric); G47.52 REM sleep behavior disorder; G25.81 Restless legs syndrome
CPT/HCPCS: 99214

== ENCOUNTER → 2025-02-08 14:44 | Outpatient (BNVA) | payer OTHER, SELFPAY | PROVIDERS: PCP Internal Medicine; Visit Provider Psychiatry & Neurology Neurology ==

== ENCOUNTER → 2025-04-01 19:30 | Outpatient (REF) | payer OTHER, SELFPAY ==
--- OUTSIDE RECORDS SUMMARY | 2025-04-01 22:26 | XMS_ITS ---
Author Name [facility] Organization Unknown History of Medication Use Medication Directions Dispensed Refills Start Date End Date Stat No known medications No known medications active Problems Problem Status Onset Date Problem Type Date of Resoluti on Source MIRANDA (obstructive sleep apnea) active EncounterDiagnosisAct CCT Encounters Encounter Type Encounter Reason Primary Diagnosis Location Date Ambulatory Obstructive sleep apnea (adult) (pediatric) Obstructive sleep apnea (adult) (pediatric) [facility] 02/24/2025 Care Team Organization Name Specialty Phone Email Start Date End Da te [facility] AGUSTIN APODACA Primary Care 02/24/2025 [facility] 02/24/2025 03/25/2025 [facility] 02/17/2025
--- OUTSIDE RECORDS SUMMARY | 2025-04-01 22:26 | XMS_ITS | Clinical Summary ---
Author Organization Formerly [facility] Address [address] [place] [address] Care Team Providers Care Foreign Policy Officer Name Role Phone Joaquín Warner DO Primary Care Provider [phone] Allergies No known active allergies Medications buPROPion (WELLBUTRIN XL) 300 MG 24 hr tablet 1 tablet (300 mg total) every morning. Active pramipexole (miraPEx) 1 MG tablet Take 1 tablet (1 mg total) by mouth 3 (three) times a day. Active PANTOprazole (PROTONIX) 40 MG EC tablet Take 1 tablet (40 mg total) by mouth 2 times a day. Active atorvastatin (LIPITOR) 10 MG tablet Take 1 tablet (10 mg total) by mouth every morning. Active VITAMIN D PO 1 tablet every morning. Active Encounters Date Type Department Care Team Description 03/31/2025 Travel 03/02/2025 CC Surg Order [facility] [address] [place] [address] Tyshawn Cody MD 03/01/2025 Orders Only [facility] [address] [place] [address] ProviderInés MD 02/24/2025 9:00 AM EDT Office Visit [facility] [address] [place] [address] Tyshawn Cody MD MIRANDA (obstructive sleep apnea) (Primary Dx) 02/12/2025 Transcribe Orders [facility] Criselda Foy MD Obstructive sleep apnea (adult) (pediatric) (Primary Dx) from Last 3 Months Social History Tobacco Use Types Packs/Day Years Used Date Smoking Tobacco: Former Cigarettes Smokeless Tobacco: Never Tobacco Cessation:Counseling Given: Not Answered Comments:Quit 35 years ago Alcohol Use Standard Drinks/Week Comments Yes 0 (1 standard drink = 0.6 oz pur e alcohol) seldom AUDIT-C Answer Date Recorded Q1: How often do you have a drink containing alc ohol? Monthly or less 03/31/2025 Q2: How many drinks containi ng alcohol do you have on a typical day when you are drinking? 1 or 2 03/31/2025 Q3: How often do you have si x or more drinks on one occasion? Never 03/31/2025 Comments Unknown Sex and Gender Information Value Date Recorded Sex Assigned at Not on file Legal Sex Female 10:39 AM EDT Gender Identity Not on file Sexual Orientation Not on file Last Filed Vital Signs Vital Sign Reading Time Taken Comments Blood Pressure - - Pulse - - Temperature - - Respiratory Rate - - Oxygen Saturation - - Inhaled Oxygen Concentration - - Weight 83.5 kg (184 lb) 03/31/2025 5:19 PM EDT Height 160 cm (5' 3 ) 03/31/2025 5:19 PM EDT Body Mass Index 32.59 03/31/2025 5:19 PM EDT Plan of Treatment Upcoming Encounters Date Type Department Care Team (Latest Contact Info) Description 04/06/2025 10:15 AM EDT Hospital Encounter [facility] [address] [place] [address] [phone] Tyshawn Cody MD [address] [place] [id number] 04/06/2025 10:15 AM EDT - 04/06/2025 11:00 AM EDT Surgery [facility] [address] [place] [address] [phone] Tyshawn Cody MD [address] [place] [address] ENDOSCOPY UPPER DRUG INDUCED SLEEP Scheduled Procedures Name Priority Associated Diagnoses Date/Ti me ENDOSCOPY UPPER DRUG INDUCED SLEEP Obstructive sleep apnea 04/06/2025 10:15 AM EDT Health Maintenance Due Date Last Done Comments Hepatitis C Virus Screening 1954 DTaP/Tdap/Td Vaccines (1 - Tdap) 1973 Mammogram 1994 Colonoscopy 1999 Pneumococcal Vaccines 50+ (1 of 1 - PCV) 2004 Zoster (Shingles) Vaccine (1 of 2) 2004 DXA Bone Density (Females,Ag es 65 and older) 2019 COVID-19 Vaccine ( - 2023-2 5 season) 2024 Influenza Vaccine 04/02/2025 RSV Vaccine 60 years and old er and Patients (1 - 1-dose 75+ series) 2029 Hepatitis B Vaccines Aged Out No long er eligible based on patient's age to complete this topic Goals Goal Patient Goal Type Associated Problems Recent Progress Patient-Stated? Author Autogenera mathieu Goal Care Plan Autogenerated Problem No Tyrone Frazier Additional Health Concerns Active Problems Noted Date Diagnosed Date Autogenerated Problem 03/02/2025 Insurance MEDICARE MEDICARE Care Teams Foreign Policy Officer Relationship Specialty Start Date End Date Joaquín Warner DO [address] [place] [id number] PCP - General Internal Medicine 02/24/25
--- OUTSIDE RECORDS SUMMARY | 2025-04-01 22:26 | XMS_ITS | Patient Health Record ---
Author Organization [facility] Address [address] [place] [address] Care Team Providers Care Security Sales Manager Name Role Phone Timmy MUNGUIA, Joaquín Primary Care Provider Calvin Stephanie Melara Juan aDvid [phone] Reason For Referral No Information Medications Medication [...] foot (M21.612) Active confirmed Plan Of Treatment Next Appt Details Provider Name:Stephanie Reese , 05/11/2025 01:00:00 PM, [address] [place], [address], Insurance Providers Payer Name Payer Address Payer Phone Subscriber Number Group Number Insured Name Patient Relationship to Insured Coverage Start Date Coverage End Date [employer] Medicare [id number] [address] [address] [place] [address] [phone] Citlaly Delatorre Self - patient is the insured Medical (General) History Medical History History ICD Code Back,Hip,and Knee pain Chicken pox Cholesterol Depression Mumps Parkinsons disease Surgical History Surgery Date(Month/Year) section 1983 tubal ligation 1989
== END ==
LOC: HO.SL 19:30
PROVIDERS: PCP Internal Medicine; Visit Provider Physician Assistant Medical
DX: G47.33 Obstructive sleep apnea (adult) (pediatric) (principal); G47.31 Primary central sleep apnea; G20.A1 Parkinson's disease without dyskinesia, without mention of fluctuations
CPT/HCPCS: 95810

== ENCOUNTER → 2025-04-01 21:31 | Outpatient (BNV) | payer OTHER, SELFPAY | PROVIDERS: PCP Internal Medicine; Visit Provider Psychiatry & Neurology Neurology | DX: G47.33 Obstructive sleep apnea (adult) (pediatric) (principal) | CPT/HCPCS: 95810 ==

== ENCOUNTER 2025-06-18 08:05 | Outpatient (AMB) | payer OTHER, SELFPAY ==
--- NOTE | 2025-06-18 08:06 | MHC.OFFVIS ---
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 she is doing good.No major change since last visit SHe denies any worsening of her gait. Her balance is not good.she had 1 fall- she tripped on a hose Tremors are stable . Mild memory issues. Sleep is good.No vivid dreams or nightmares. She is independent in all ADLS. she denies any speech or swallowing issues No hallucinations No dizziness. She uses a stool softener . Mood is stable. Denies anxiety Denies REM behavior. She is on APAP [id number].- see notes compliance 41 % 3hrs usage PFSH Medical History Cough Parkinson's disease without dyskinesia, without mention of fluctuations Leg cramps, sleep related Arthritis Hyperlipidemia Restless legs syndrome (RLS) Complex sleep apnea syndrome Surgical History History of ankle surgery Family History Father Lung cancer Emphysema of lung Mother Stroke Social History Household Members: Spouse and Children Alcohol intake: current Alcohol intake frequency: holidays/special occasions only Alcohol type: wine Patient Tobacco Use Status: Former Tobacco user Physical Exam Vital Signs: Last Vital Signs Pulse 94 06/18/25 08:09 BP 110/68 06/18/25 08:09 Pulse Ox 95 06/18/25 08:09 Oxygen Delivery Method Room Air 06/18/25 08:09 BMI result Body Mass Index 32.4 Const General: cooperative, comfortable and no acute distress Nutritional Appearance: obese Orientation/consciousness: patient oriented x3 Limitations: physical limitations HEENT Head: Yes normal to inspection Neuro Other: very mild decreased facial expression and blink Speech normal rest tremors in ivette LE Mild postural tremors ivette Mild bradykinesia UE L>R Moderate bradykinesia L>R in LE Gait- mild slowing decreased arm swing left >r no cog wheel rigidity General: patient oriented x3 Assessment & Plan Assessment & Plan (1) Parkinson's disease without dyskinesia, without mention of fluctuations: Code(s): G20.A1 - Parkinson's disease without dyskinesia, without mention of fluctuations Category: Medical Qualifiers: Fluctuating manifestations: without fluctuating manifestations Qualified Code(s): G20.A1 - Parkinson's disease without dyskinesia, without mention of fluctuations (2) Obstructive sleep apnea: Comment: Severe degree of sleep apnea. The total AHI was 37/hr and oxygen meliza was 81 % Code(s): G47.33 - Obstructive sleep apnea (adult) (pediatric) Category: Medical (3) REM behavioral disorder: Code(s): G47.52 - REM sleep behavior disorder Category: Medical (4) Restless legs syndrome (RLS): Code(s): G25.81 - Restless legs syndrome Category: Medical Plan Pramipexole 1mg tid ( c/o excessive sleepiness)discussed side effects- denies any hypersomnia or OCD like symptoms. I will trial her on carbidopa/levodopa 25/100 1 tab bid Continue CPAP 5-14 cmH2O.compliance stressed. Checkw ith Dr Cline for INSPIRE evaluation . Patient is having difficulty using CPAP. Continue exercise Medications: New carbidopa-levodopa 25-100 mg (Sinemet) 1 tab PO BID 60 tabs 6RF Coding Level of Care Code Est Pt Level 4 (45579) Diagnoses Parkinson's disease without dyskinesia or fluctuating manifestations G20.A1 Fluctuating manifestations: without fluctuating manifestations Obstructive sleep apnea G47.33 REM behavioral disorder G47.52 Restless legs syndrome (RLS) G25.81
[2025-06-18 08:09] VITALS: BP 110/68; PULSE 94; O2SAT 95; BMI 32.4
== END 2025-06-18 08:24 | disposition home or self-care (01) ==
LOC: HO.HSMS 08:06
PROVIDERS: PCP Internal Medicine; Visit Provider Psychiatry & Neurology Neurology
DX: G20.A1 Parkinson's disease without dyskinesia, without mention of fluctuations (principal); G47.33 Obstructive sleep apnea (adult) (pediatric); G47.52 REM sleep behavior disorder; G25.81 Restless legs syndrome
CPT/HCPCS: 99214

== ENCOUNTER → 2025-07-14 21:00 | Outpatient (BNV) | payer MEDICARE, SELFPAY | PROVIDERS: PCP Internal Medicine; Visit Provider Psychiatry & Neurology Neurology | DX: G47.33 Obstructive sleep apnea (adult) (pediatric) (principal) | CPT/HCPCS: 95811 ==

== ENCOUNTER → 2025-07-14 21:05 | Outpatient (REF) | payer MEDICARE, SELFPAY ==
--- OUTSIDE RECORDS SUMMARY | 2025-07-14 21:08 | XMS_ITS | Patient Health Record ---
Author Organization [facility] Address [address] [place] [address] Care Team Providers Care Customer Relations Assistant Name Role Phone Joaquín Warner MD Primary Care Provider Unavai lable Black, Stephanie Unavailable [phone] Allergies No Known Allergies Results Component Value Reference Range Notes X ray : Foot, left 3V Reviewed date:05/11/2025 04:09:22 PM Interpretation:See Examination above Performing Lab: Notes/Report: See Examination above Reason For Referral No Information Medications Medication SIG (Take, Route, Frequency, Duration) Notes Start Date End Date Status PriLOSEC 10 MG 2 capsules Orally Once a day Not-Taking aspirin Not-Taking Magnesium Not-Taking Wellbutrin Active vitamin D Not-Taking Atorvastatin Calcium Active Topiramate Not-Takin g Terbinafine HCl 250 MG 1 tablet Orally O nce a day for 7 days days then stop for 3 weeks repeat cycle; Duration: 90 days 05/11/2025 Active buPROPion HCl ER (XL) 150 MG Orally Not-Taking Pramipexole Dihydrochloride Active Azithromycin Not-Guerrero ing Pantoprazole Sodium Active Simvastatin 10 MG Orally No t-Taking Immunizations Vaccine Route Administration Date Status Comme nts Influenza Unknown 06/18/2024 Administered Social History Tobacco Use: Social History Observation Description Date Details (start date - stop date) Never Smoker NA - NA Tobacco use other than smoking: Question Answer Notes Are you an other tobacco user? No Tobacco Control (Standard) Question Answer Notes Tobacco use: Nonsmoker Additional Findings: Tobacco non-user Current no nsmoker AUDIT-C (Standard) Question Answer Notes Did you have a drink containing alcohol in the p ast year? No Points 0 Interpretation Negative Problems Problem Type SNOMED Code ICD Code Onset Dates Problem Status W/U Status Risk Notes Problem Acquired hallux valgus (59919756) Hallux valgus (acquired), left foot (M20.12) Active confirmed Vital Signs Blood pressure diastolic 70 mm Hg 05/11/2025 Height 5 ft 3 in in 05/11/2025 Blood pressure systolic 120 mm Hg 05/11/2025 Weight 185 lbs 05/11/2025 BMI 32.77 kg/m2 05/11/2025 Encounters Encounter [facility] Date [facility] [address] 05/11/2025 Stephanie Black Onychomycosis B35.1 ; Hallux valgus (acquired), left foot M20.12 ; Pain in right toe(s) M79.674 ; Pain in left toe(s) M79.675 ; Pain in left foot M79.672 ; Pain in left ankle and joints of left foot M25.572 and Bursitis of left foot M77.52 [facility] [address] 05/07/2025 Stephanie Black [facility] [phone] 05/17/2025 Stephanie Black Onychomycosis B35.1 Assessments Encounter Date Diagnosis (ICD Code) Assessment Notes Treatment Notes Treatment Clinical Notes Section Notes 05/11/2025 Hallux valgus (acquired), left foot (ICD-10 - M20.12) 05/11/2025 Onychomycosis (ICD-10 - B35.1) 05/17/2025 Onychomycosis (ICD-10 - B35.1) 05/11/2025 Pain in right toe(s) (ICD-10 - M79.674) 05/11/2025 Pain in left toe(s) (ICD-10 - M79.675) 05/11/2025 Pain in left foot (ICD-10 - M79.672) 05/11/2025 Pain in left ankle and joints of left foot (ICD-10 - M25.572) 05/11/2025 Bursitis of left foot (ICD-10 - M77.52) Plan Of Treatment Pending Test Test Name Order Date *Liver Function Test (LFT) 05/11/2025 Next Appt Details Provider Name:Stephanie Reese , 08/17/2025 01:45:00 PM, [address] [facility], [place], [address], Insurance Providers Payer Name Payer Address Payer Phone Subscriber Number Group Number Insured Name Patient Relationship to Insured Coverage Start Date Coverage End Date [facility] Medicare-[id number] [address] [address] [place] [address] [id number] Citlaly Delatorre Self - patient is the insured Medical (General) History Medical History History ICD Code Back,Hip,and Knee pain Chicken pox Cholesterol Depression Mumps Parkinsons disease Arthritis (OA, RA) Joint implants/screws Sleep Apnea Surgical History Surgery Date(Month/Year) section 1980, 1983 tubal ligation 1989 foot sx 2021
--- OUTSIDE RECORDS SUMMARY | 2025-07-14 21:08 | XMS_ITS | Data Portability ---
Author Organization [facility], [facility] Address [address] [place] [address] Care Team Providers Care Piano Technician Name Role Phone FILEMON APODACANO Primary Care Provider Assessment Encounter Date Assessment Date Assessment LastModified by Organization Details LastModified Time 01/14/2024 01/14/2024 X-RAYS: Five standing views of the left foot and ankle including Almonte axial calcaneal view were ordered, obtained and reviewed by me today at [facility], demonstrating healed calcaneal osteotomy, residual pes planovalgus, severe incongruent hallux valgus deformity. Hardware is intact and well positioned. IMPRESSION: Almost 3 years postop, residual pes planovalgus deformity, severe hallux valgus PLAN: I have suggested she wear her custom molded orthotics for additional support. I am sending her for a CT scan to further evaluate her hindfoot and midfoot alignment as well as degree of arthritis and her calcaneal osteotomy, which appears healed on x-ray. Her hardware appears well-positioned. I will speak with her by telephone after the CT scan to discuss the results and treatment options. She may consider wearing her AFO brace. Additional surgery in my estimation would likely consist of left double versus triple hindfoot arthrodesis in conjunction with either a plantarflexion Lapidus bunionectomy versus hallux MTP fusion. I discussed this with her today. She understands and agrees with this plan. All of her questions were answered. Not available 01/14/2024 09:32:13 02/04/2024 02/04/2024 Telemedicine Telephone Encounter Patient Location: Home Physician Location: [place], [place] Time spent with patient: 12 mins (including CT scan review) HPI: Citlaly is a 68-year-old woman with Parkinson's disease who is 3 years status post left minimally invasive medial displacement calcaneal osteotomy, posterior tibial tendon debridement, FDL transfer to the navicular, spring ligament repair and gastrocnemius recession. I last saw her in mid-December and she joins me today by telephone for MRI review. She describes continued pain about her left foot localized to her severe bunion as well as her plantar heel and arch. She describes residual swelling and some neuritic pain. Her bunion has worsened over time. She has not been wearing her custom orthotics or her brace. She uses her CAM boot occasionally. She describes some throbbing and feels as if she is walking on a rock. When I last saw her, she had planned to wear her brace but discovered this was not a custom brace and she was not able to tolerate it. Past family, medical, social history and review of systems has been reviewed, updated and signed by me and is located in the patient s chart. No interval changes. PHYSICAL EXAM: deferred Based on my last physical exam from 01/14/24: General: obese, healthy appearing, in no acute distress, resting tremor Psych: alert and oriented x3, normal mood Skin: intact without ulceration or lesion, normal turgor Lungs: respirations unlabored Cardiac: heart rate regular, normal peripheral pulses Musculoskeletal: On standing exam, she has residual pes planovalgus and severe hallux valgus deformity. There is some mild residual swelling about the hindfoot. She has a callus over the plantar medial aspect of the hallux MTP joint. Her hallux valgus deformity is partially passively correctable. Her hindfoot deformity is not fully passively correctable. There is tenderness about the plantar heel as well as along the arch. She is able to invert her hindfoot against resistance. She has painless ankle range of motion in the sagittal plane and her ankle is stable. She has good gastrocnemius flexibility and is distally neurovascularly intact. X-RAYS: Previous x-rays were reviewed, demonstrating healed calcaneal osteotomy, residual pes planovalgus, severe incongruent hallux valgus deformity. Hardware is intact and well positioned. CT: Her CT scan images from 02/03/2024 were independently reviewed, demonstrating healed calcaneal osteotomy with well-positioned intact screws. There is pes planus along with severe hallux valgus deformity. 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 There is also some arthritis about the talonavicular and subtalar joints. IMPRESSION: 3 years postop, residual pes planovalgus deformity, severe hallux valgus PLAN: I have recommended trial of a custom AFO brace versus Keon brace. The patient is amenable to this plan. A brace was ordered today. She will follow up in 2 months for reevaluation. If bracing fails to alleviate her discomfort, we will discuss additional surgery. Additional surgery in my estimation would likely consist of left double versus triple hindfoot arthrodesis to correct her pes planovalgus deformity. Her severe hallux varus deformity could be corrected either with a plantarflexion Lapidus bunionectomy versus hallux MTP fusion. I believe a hallux MTP fusion would adequately correct her bunion and would have a quicker recovery than a Lapidus. I discussed this with her today. She understands and agrees with this plan. All of her questions were answered. This visit was a real-time Telemedicine interaction between a physician in a medical office and patient from their home. The totality of the communication of information exchanged between the physician (myself) and the patient during the course of the synchronous telemedicine service was sufficient to meet the mcrae components and/or requirement of the same service when rendered via a bxvo-on-sqvz interaction. I discussed with the patient the risks and benefits of telemedicine services and the patient consented to the receipt of such telemedicine services. Not available 02/04/2024 12:01:51 Plan of Treatment Reminders Order Date Submit Date Provider Last Modified By Organization Details Last Modified Time Details Appointments None recorded. Lab None recorded. Referral None recorded. Procedures None recorded. Surgeries None recorded. Imaging XR, hand, 3 or more view - room 115 cast off 3V L hand 2024 025 [facility], [address], [place], [address], 11:22:20 XR, hand, 3 or more view - RM 2 3V LEFT HAND [facility]25 [facility], [address], [place], [address], 5 09:19:13 XR, foot, 3 or more view - RM 107-- new 3V FOOT WB, 2V ANKLE WB, almonte axial wb 2023 024 [email or web address] Not available 4 09:47:37 XR, ankle, 2 view 2023 024 [email or web address] Not available 4 09:47:37 CT, ankle, w/o contrast - left ankle/foot pain-- eval hindfoot fusion healing 2023 024 [facility] [place], [address] [facility] [address], [place], [address], 4 15:29:58 Medication Orders cephalexin 500 mg capsule 2024 025 [email or web address] [id number], [address] [facility], [place], [address], 5 09:19:13 Patient TargetsNo targets recorded. Patient Instructions Encounter Date Encounter Id Patient Instructions Last Modified By Organization Details Last Modified Time 02/15/2025 [id number] application of cast, short arm cast* - rm 2 midforearm radial gutter cast pipj free Not available 02/15/2025 14:36:41 03/03/2025 [id number] cast removal* - room 115 cast off 3V L hand Not available 03/03/2025 11:22:20 Reason for Referral None Reported. Results Created Date Observation Date Name Description Value Unit Range Abnormal Flag Note LastModifiedBy Organization Detail LastModifiedTime 02/03/20 24 02/03/2024 CT, ankle , w/o contr ast No observ ation record [facility]. [facility] [place] [address], [place], [address], 02/03/2024 15:29:58 02/16/20 25 02/15/2025 XR, hand, 3 or more view [email or web address] ?Encry pted=s hAaTro YD8dLq bEUv6g %2BXZw aYqtaq 0bqfl% 2Fg9IQ a4ajBk vP9nXo QUaueC m3YtLR FvZlgJ JJ8mAn HZtai3 4g7979 AC0Kla HmAVqq mKiQtr MwF INTERFACE [facility] [address], [place], [address], 02/15/2025 08:49:22 02/16/20 25 02/15/2025 XR, hand, 3 or more view [email or web address]:/ [email or web address] ?Encry pted=s hAaTro YD8dLq bEUv6g %2BXZw aYqtaq 0bqfl% 2Fg9IQ a4ajBk vP9nXo QUaueC m3YtLR FvZlgJ JJ8mAn HZtai3 9x6031 AC0Kla HmAVqq mKiQtr MwF INTERFACE [facility] [address], [place], [address], 02/15/2025 08:49:24 03/03/20 25 03/03/2025 XR, hand, 3 or more view [email or web address] ?Encry pted=s hAaTro YD8dLq bEUv6g %2BXZw aYqtaq 0bqfl% 2Fg9IQ a4ajBk vP9nXo QUaueC m3YtLR FvZlgJ JJ8mAn HZtai3 3o7762 AC0Kla X%2BGV KOhKiQ trMwF INTERFACE [facility] [address], [place], [address], 03/03/2025 11:07:19 03/03/20 25 03/03/2025 XR, hand, 3 or more view [email or web address] ?Encry pted=s hAaTro YD8dLq bEUv6g %2BXZw aYqtaq 0bqfl% 2Fg9IQ a4ajBk vP9nXo QUaueC m3YtLR FvZlgJ JJ8mAn HZtai3 8v5294 AC0Kla X%2BGV KOhKiQ trMwF INTERFACE [facility] Office [address] [facility] [address], [place], [address], 03/03/2025 11:07:20 Result Notes Documentation Provider Name and Address Organization Details Recorded Time Xr, Hand, 3 Or More View : [email or web address] Encrypted=nhKaJgkKZ7aVewY Uv6g%0CEMrkEdnin9vosn%2Fg 9SGa6qpShkH4uXtJAxdsTv6Fk ZUEuDtyCXE8yLvGVick11f054 3BB7ZdwJxPIiqjEuCbaRqC Not Available [facility] 02/15/2025 08:49: 23 Xr, Hand, 3 Or More View : [email or web address] Encrypted=xpQpGdmQR1fKfqL Uv6g%8KUMbcPnlht5lsvl%2Fg 6ISh4lvEeqB1iTaARxjmUz5Bo JVVsVrrFDN4mZiKIwzu28q586 4TH1KrwWjAPynkPpHgcRhW Not Available [facility] 02/15/2025 08:49: 25 Xr, Hand, 3 Or More View : [email or web address] Encrypted=wqZzGwtEG8bMsgJ Uv6g%2DAMndMhliv0yblp%2Fg 3ROc7gsJtxW7uXqMRzgjBk6Dn FVNxPvmAVF5aWlCHtbv61q240 6BE7ZutP%2BGVKOhKiQtrMwF Not Available [facility] 03/03/2025 11:0 7:19 Xr, Hand, 3 Or More View : [email or web address] Encrypted=vaQgGjmQI3sMpjK Uv6g%9GAMwkGrfov2bayu%2Fg 1QKl3ibWgzQ2zYqTKpddBi1Tm XZIhLxrIPB8xTwLBczf84q863 9EO4KcqM%2BGVKOhKiQtrMwF Not Available [facility] 03/03/2025 11:0 7:21 Problems Name Problem SNOMED Code Status Onset Date Resolution Date Notes Provider Name and Address Organization Details Recorded Time No complaints [id number] Active Status : 'A'; Not Available [facility] 09:12:18 Problem Notes None recorded. Medical Equipment None Reported. Allergies No known drug allergies Medications Name Sig Start Date Stop Date Status Note LastModified by Organization Details LastModified Time celecoxib 200 mg capsule TAKE 1 CAPSULE BY MOUTH EVERY DAY WITH FOOD FOR 30 DAYS active Not Available Not Available No t Available amoxicillin 500 mg capsule TAKE 1 CAPSULE BY MOUTH THREE TIMES A DAY UNTIL FINISHED active Not Available Not Available No t Available pramipexole 1 mg tablet TAKE 1 TABLET BY MOUTH 3 TIMES A DAY active Not Available Not Available No t Available atorvastati n 10 mg tablet TAKE 1 TABLET BY MOUTH EVERY DAY active Not Available Not Available No t Available meloxicam 15 mg tablet TAKE 1 TABLET EVERY DAY BY ORAL ROUTE AFTER MEAL(S). active Not Available Not Available No t Available lorazepam 0.5 mg tablet TAKE 1 TABLET BY MOUTH 1 1/2 HOURS BEFORE APPOINTME NT active Not Available Not Available No t Available cephalexin 500 mg capsule TAKE 1 CAPSULE 3 TIMES A DAY BY ORAL ROUTE WITH MEAL(S) FOR 7 DAYS. active Not Available Not Available No t Available pantoprazol e 40 mg tablet,andrez yed release TAKE 1 TABLET BY MOUTH TWICE A DAY active Not Available Not Available No t Available lorazepam 1 mg tablet TAKE 1 TABLET BY MOUTH 30 MINS PRIOR TO FLIGHT FOR 5 DAYS active Not Available Not Available No t Available ibuprofen 600 mg tablet TAKE 1 TABLET EVERY 6 HOURS NEEDED FOR PAIN active Not Available Not Available No t Available methylpredn isolone 4 mg tablets in a dose pack TAKE 6 TABLETS ON DAY 1 DIRECTED ON PACKAGE AND DECREASE BY 1 TAB EACH DAY FOR A TOTAL OF 6 DAYS active Not Available Not Available No t Available bupropion HCl XL 300 mg 24 hr tablet, extended release TAKE 1 TABLET BY MOUTH EVERY DAY IN THE MORNING FOR 90 DAYS active Not Available Not Available No t Available pramipexole 0.75 mg tablet TAKE ONE TABLET BY MOUTH 3 TIMES A DAY active Not Available Not Available No t Available oxycodone HCl-oxycodo ne-ASA 1 Q 4-6HRS PRN PAINDO NOT DRIVE WHILE ON THIS MEDICATIO N 12/07 completed Statu s: 'Disc ontin ued'; Not Available Not Available Not Available Gel-One as directed Inject 1 pre filled syringe intra articular ly into both knees once to be administe red at drs office 12/07 completed Statu s: 'Disc ontin ued'; Not Available Not Available Not Available Vitals Date Recorded Body height Body mass index (BMI) Body weight Provider Name and Address Organization Details Last Updated DateTime 01/14/2024 167.64 cm 31.5 kg/m2 14350.51 g MENDEL Elliott [facility] 01/14/2024 09:32:18 Date Recorded Body height Body mass index (BMI) Body weight Provider Name and Address Organization Details Last Updated DateTime 02/15/2025 160.02 cm 32.8 kg/m2 45240.59 g ALEXIS GAO [facility] 02/15/2025 08:39:05 Date Recorded Body height Body mass index (BMI) Body weight Provider Name and Address Organization Details Last Updated DateTime 03/03/2025 160.02 cm 32.8 kg/m2 47210.59 g HUGO PALMA [facility] 03/03/2025 10:57:44 Social History None recorded. Functional Status None recorded. Mental Status None recorded. Family History Nothing Reported. Medical History No medical history recorded. Gynecological HistoryNo gynecological history recorded. Obstetrics History GPAL:G 0 P 0 0 0 0 Past Encounters Encounter ID Performer Location Encounter Start Date Encounter Closed Date Diagnosis/Indication Diagnosis SNOMED-CT Code Diagnosis ICD10 Code Diagnosis IMO Codes Diagnosis Note [id number] MD [facility] [address] [facility] [place] [address] 01/14/2024 08:54:53 02/04/2024 14:08:25 Foot pain 63322356 M79.672 Follow-up orthopedic assessment 606683077 Z47.89 Acquired l eft hallux valgus 9762827843 57206 M20.12 [id number] Brad Ospina MD [facility] [address] [place] [address] 02/04/2024 11:12:53 03/03/2024 10:09:58 Acquired pes planus of left foot 5609210260 56898 M21.42 Acquired l eft hallux valgus 5784436217 84011 M20.12 [id number] [facility] [address] [place], [place] [address] 02/15/2025 08:28:16 03/02/2025 15:37:48 Pain of left hand 7251359261 52883 M79.642 [id number] [facility] [address] [place] [address] 03/03/2025 10:29:52 03/17/2025 15:44:17 Pain of left hand 0102414524 13829 M79.642 [id number] Health Concerns Section Related Observation LastModified by Organization Detai ls LastModified Time None Recorded Concern Status LastModified by Organization Details LastModified Time None Recorded Advance Directives Directive None Recorded Payers Insurance Date Sequence Insurance Name Policy Number Policy Oshea Covered Member ID Oshea Member ID Guarantor Name 02/15/2025 1 [facility] (MEDICARE REPLACEMENT/A DVANTAGE - PPO) Citlaly Cruz [id number] Citlaly Cruz 03/30/2025 1 [facility] (MEDICARE REPLACEMENT/A DVANTAGE - HMO) [id number] Citlaly Cruz [id number] Citlalykizzy Cruz Notes Date Note Type Note Provider Name and Address Organization Details Recorded Time 01/14/2024 text/html ROS as noted in the HPI Citlaly is a 68-year-old woman with Parkinson's disease who is almost 3 years status post left minimally invasive medial displacement calcaneal osteotomy, posterior tibial tendon debridement, FDL transfer to the navicular, spring ligament repair and gastrocnemius recession. She was last seen in our office in July 2021 and has been lost to follow-up since then. She describes continued pain about her left foot localized to her severe bunion as well as her plantar heel and arch. She describes residual swelling and some neuritic pain. Her bunion has worsened over time. She has not been wearing her custom orthotics or her brace. She wears her CAM boot occasionally. She describes some throbbing and feels as if she is walking on a rock.Past family, medical, social history and review of systems has been reviewed, updated and signed by me and is located in the patient s chart. No interval changes. Brad Ospina MD [address], [place], [address], [facility] 01/14/2024 10:46:07 02/04/2024 text/html ROS as noted in the HPI Brad Ospina MD [address], [place], [address], [facility] 02/04/2024 14:37:59 02/15/2025 text/html I am seeing the patient today under the supervision of dr Hernandez who was available but who did not see the patient. DX: Tenderness over the third metacarpal left hand possible occult fracture status post fall 02/12/2025Nail plate injury left ring finger HPI: 69-year-old female here for orthopedic consultation. She sustained a fall in her driveway. She has Parkinson's disease. She did not seek medical attention. Complaining of swelling over the dorsum left hand. She also reports that her nail plate lifted off the nail bed of her ring finger. She has a Band-Aid on. Has been icing. Past family, medical, social history and review of systems has been reviewed, updated and is located in the patient s chart. Examination: Alert and oriented 3. No acute distress. Nonantalgic gait. Examination left hand reveals dorsal swelling and ecchymosis. She is tender over the third metacarpal shaft and head. Nail plate is lifted off the nail bed left ring finger. No signs of infection. 1+ cap refill. No malrotation or angular deformity. Right hand reveals no soft tissue swelling, erythema, or ecchymosis. Digital range of motion is full. Neurovascular intact X-rays ordered, obtained and reviewed at [facility] views left hand reveals no obvious fracture, dislocation Impression/Plan:Dexter cai in the situation discussed. Patient was placed in a radial gutter cast, PIP joint free. She will return in 2 weeks for cast removal and 3 views of the left hand. In regards to the nail plate injury of the ring finger. Coban dressing was applied over the finger. She was placed on prophylactic Keflex Avtar Santiago PA-C [address], [place], [address], [facility] 02/15/2025 09:19:08 03/03/2025 text/html I am seeing the patient today under the supervision of dr Hrenandez who was available but who did not see the patient. DX: Swelling and tenderness over the third MCP joint left hand possible sagittal band injury versus capsulitis status post fall 02/12/2025 HPI: 69-year-old female here for reevaluation. She was seen by myself on 02/15/2025. She was placed in a radial gutter cast PIP joint free. She comes in for cast removal but she still swollen over the third MCP joint. She is tender over the third MCP joint. No obvious subluxation of the extensor mechanism but she is tender over the ulnar and radial sagittal bands. She has decent digital range of motion. Past family, medical, social history and review of systems has been reviewed, updated and is located in the patient s chart. Examination: Alert and oriented 3. No acute distress. Nonantalgic gait. Examination left hand reveals dorsal swelling and tenderness over the third MCP joint. No extensor tendon subluxation. She is tender over the radial and ulnar sagittal bands.. 1+ cap refill. No malrotation or angular deformity. Right hand reveals no soft tissue swelling, erythema, or ecchymosis. Digital range of motion is full. Neurovascular intact X-rays ordered, obtained and reviewed at [facility] views left hand reveals no obvious fracture, dislocation Impression/Plan:Dexter cai in the situation discussed. Patient was placed in a yoke splint. She was prescribed meloxicam. Will obtain an MRI to evaluate for sagittal band injury third MCP joint left hand. She will follow-up after the study Avtar Santiago PA-C [address], [place], [address], [place] [facility] [place] [facility] 03/03/2025 11:17:25 OBGyn Episode No OBEpisode recorded.
--- OUTSIDE RECORDS SUMMARY | 2025-07-14 21:08 | XMS_ITS | Clinical Summary ---
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 Role Phone Joaquín Warner DO Primary Care Provider [phone] Social History Tobacco Use Types Packs/Day Years [...] Mass Index - - Plan of Treatment Health Maintenance Due Date Last Done Comments Breast Cancer Screening 1954 Colorectal Cancer Screening: Colonoscopy 1954 DTaP,Tdap,and Td Vaccines (1 - Tdap) 1973 Pneumococcal Vaccine: 50+ Years (1 of 1 - PCV) 2004 Zoster Vaccines (1 of 2) 2004 Falls Risk Assessment 08/05/2022 Hepatitis C Screening 08/05/2022 Medicare Annual Wellness Visit 08/05/2022 Social Influencers of Health Screening 08/05/2022 Depression Screening 09/02/2024 COVID-19 Vaccine (4 - 2024-2 6 season) 2025 06/26/2021, 12/20/2020, 11/27/2020 Influenza Vaccine (#1) 2025 , 07/10/2023, 07/04/2022 RSV Immunization Adult Patients (1 - 1-dose 75+ series) 2029 Cholesterol Screening (Lipid Panel) 01/20/2030 01/20/2025, 07/23/2024 Osteoporosis Screening (Bone Density Screening) 09/18/2034 09/18/2024 HIB Vaccines Aged Out No longer eligi [...] age to complete this topic Meningococcal B Vaccine Aged Out No l onger eligible based on patient's age to complete this topic RSV Immunization Patients Under 20 months Aged Out No longer eligible b ased on patient's age to complete this topic Varicella Vaccines Aged Out No longer eligible based on patient's age to complete this topic Procedures Procedure Name Priority Date/Time Associated Diagnosis Comments HEPATIC FUNCTION PANEL Routine 05/12/2025 3:00 PM EDT Dermatophytosis of nail LIPID PANEL WITH REFLEX TO DIRECT LDL Routine 01/20/2025 10:45 AM EDT Hyperlipemia BD BONE DENSITY DXA AXIAL SKELETON Routine 09/18/2024 1:25 PM EST Post-menopausal from Last 3 Months or Most Recently Relevant to Health Maintenance Results * Hepatic function panel (05/12/2025 3:00 PM EDT) Total Protein 7.2 6.0 - 8.0 g/dL LAB CHEMISTRY METHOD 05/12/2025 8:41 PM EDT [facility] Albumin 3.6 3.2 - 5.0 g/dL LAB CHEMISTRY METHOD 05/12/2025 8:41 PM EDT [facility] Total Bilirubin 0.4 0.0 - 1.4 mg/dL LAB CHEMISTRY METHOD 05/12/2025 8:41 PM EDT [facility] Bilirubin, Direct 0.1 0.0 - 0.3 mg/dL LAB CHEMISTRY METHOD 05/12/2025 8:41 PM EDT [facility] Bilirubin, Indirect 0.3 0.0 - 1.1 mg/dL LAB CHEMISTRY METHOD 05/12/2025 8:41 PM EDT [facility] ALT (SGPT) 24 10 - 60 unit/L LAB CHEMISTRY METHOD 05/12/2025 8:41 PM T [facility] AST (SGOT) 23 10 - 42 unit/L LAB CHEMISTRY METHOD 05/12/2025 8:41 PM T [facility] Alkaline Phosphatase 74 42 - 121 unit/L LAB CHEMISTRY METHOD 05/12/2025 8:41 PM T [facility] Blood Venous blood specimen / Unknown Venipuncture / Unknown 05/12/2025 3:00 PM EDT 05/12/2025 3:00 PM EDT us Stephanie Reese DPM LAB BLOOD ORDERABLES Final Resu lt [facility] [address] [place] [address], * (ABNORMAL) Lipid panel with reflex to direct LDL (01/20/2025 10:45 AM EDT) Cholesterol 164 0 - 200 mg/dL LAB CHEMISTRY METHOD 01/20/2025 4:44 PM EDT [facility] Triglycerides 176(H) 0 - 150 mg/dL LAB CHEMISTRY METHOD 01/20/2025 4:44 PM EDT [facility] HDL 41 >=40 mg/dL LAB CHEMISTRY METHOD 01/20/2025 4:44 PM EDT [facility] LDL Calculated 88 0 - 100 mg/dL LAB CHEMISTRY METHOD 01/20/2025 4:44 PM EDT [facility] VLDL Cholesterol Bill 35.2 mg/dL LAB CHEMISTRY METHOD 01/20/2025 4:44 PM EDT [facility] Non HDL Chol. (LDL+VLDL) 123 <145 mg/dL LAB CHEMISTRY METHOD 01/20/2025 4:44 PM EDT [facility] Chol/HDL Ratio 4.0 0.0 - 4.4 LAB CHEMISTRY METHOD 01/20/2025 4:44 PM EDT [facility] Blood Venous blood specimen / Unknown Venipuncture / Unknown 01/20/2025 10:45 AM EDT 01/20/2025 10:46 AM EDT us Mihaela Rodriguez NP LAB BLOOD ORDERABLES Fi nal Result [facility] [address] [place] [address], [place] [phone] * BD Bone Density DXA Axial Skeleton (09/18/2024 1:25 PM EST) Anatomical Region Laterality Modality Wrist, Hip, L-spine Bone Densito metry 09/21/2024 8:36 AM EST Impressions 09/21/2024 8:37 AM EST 1. There is no evidence of osteoporosis or osteopenia. 2. FRAX analysis yields a 10-year probability of major osteoporotic fracture of 3.6% and a 10-year probability of hip fracture of 0.2%. Code 94077 -------- FINAL REPORT -------- Dictated By: Aneudy Perez Dictated Date: 09/21/2024 08:36 ET Assigned Physician: Aneudy Perez Reviewed and Electronically Signed By: Aneudy Perez Signed Date: 09/21/2024 08:37 ET Workstation ID: [id number] Transcribed By: Self Edit Transcribed Date: 09/21/2024 08:36 ET Narrative 09/21/2024 8:37 AM EST HISTORY: The patient is a 68-year-old postmenopausal female with clinical concern for metabolic bone disease. FINDINGS: Dual energy x-ray absorptiometry of the lumbar spine and femurs is performed. The mean bone mineral density at L1-L4 is 1.205 gm/cm2 which is 102% of that of young normals and 114% of that of age matched controls. This yields a T-score of 0.2 and a Z-score of 1.3 and there is therefore no evidence of osteoporosis or osteopenia here. The mean bone mineral density of the femurs bilaterally is 1.067 gm/cm2 which is 106% of that of young normals and 121% of that of age matched controls. This yields a T-score of 0.5 and a Z-score of 1.5 and there is therefore no evidence of osteoporosis or osteopenia here. Procedure Note Aneudy Perez MD - 09/21/2024 HISTORY: The patient [...] density of the femurs bilaterally is 1.067 gm/[id number] is 106% of that of young normals [...] probability of hip fracture of 0.2%. 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
== END ==
LOC: HO.SL 21:05
PROVIDERS: PCP Internal Medicine; Visit Provider Physician Assistant Medical
DX: G47.33 Obstructive sleep apnea (adult) (pediatric) (principal)
CPT/HCPCS: 95811